=== PATIENT | female | born 1970 ===

== ENCOUNTER 2016-07-10 21:53 | Emergency (ER) | payer MEDICAID, OTHER ==
[2016-07-11] MEDS ORDERED: DIPHENHYDRAMINE HCL 50 MG/1 ML VIAL ONE (00:35)
[2016-07-11] MEDS ORDERED: METOCLOPRAMIDE HCL 5 MG/ML 2ML VIAL ONE (00:35)
[2016-07-11] MEDS ORDERED: KETOROLAC TROMETHAMINE 60 MG/2 ML VIAL ONE (00:35)
== END 2016-07-11 01:21 | disposition home or self-care (01) ==
LOC: ED 21:53
DX: G44.209 Tension-type headache, unspecified, not intractable (principal); G43.909 Migraine, unspecified, not intractable, without status migrainosus
CPT/HCPCS: 99283 ×2; 96372 ×3; J1200; J2765; J1885